=== PATIENT | male | born 1980 | race African-American/Black ===

== ENCOUNTER 2019-02-05 19:51 | Emergency (ER) | payer BC ==
[2019-02-05 20:02] VITALS: BP 124/75
--- NOTE | 2019-02-05 21:55 | ER Document Report ---
HPI - HPI Time Seen by Provider: 02/05/19 21:43 Pain Level: 4 Notes: Patient is a 38-year-old male with no significant past medical history who presents emergency department complaining of increased urinary frequency and suprapubic pressure over the last 2-3 days. Patient states that he noticed some blood in his urine today. Patient states that he does have some back pain on occasion, and back soreness intermittently worse on the Rt > Lt. The pain has not been radiating. Patient states that he does have a decreased appetite when he has the pain, but is not vomiting. He is having normal soft bowel movements. Patient states that he has not been sexually active in 2 years. He has not noticed any rash, swelling, or discharge. Denies drug allergies. Denies any headache, fever, URI, sore throat, chest pain, palpitations, syncope, cough, shortness of breath, wheeze, dyspnea, abdominal pain, nausea/vomiting/diarrhea, loss of control of bowel or bladder, numbness/tingling, saddle anesthesia, muscle paralysis/weakness, or rash. - ROS Systems Reviewed and Negative: Yes All other systems reviewed and negative - URINARY Urinary: REPORTS: Dysuria, Urgency, Frequency Past Medical History - Social History Smoking Status: Never Smoker Family History: Reviewed & Not Pertinent Patient has suicidal ideation: No Patient has homicidal ideation: No Renal/ Medical History: Denies: Hx Peritoneal Dialysis Vertical Provider Document - CONSTITUTIONAL Agree With Documented VS: Yes Notes: PHYSICAL EXAMINATION: GENERAL: Well-appearing, well-nourished and in no acute distress. LUNGS: Breath sounds clear to auscultation bilaterally and equal. No wheezes rales or rhonchi. HEART: Regular rate and rhythm without murmurs, rubs, gallops. ABDOMEN: Soft, nontender, nondistended abdomen. No guarding, no rebound. No masses appreciated. Normal bowel sounds present. No CVA tenderness bilaterally. Musculoskeletal: FROM to passive/active. Strength 5+/5. Back: FROM. Strength 5+/5. SLR neg. No foot drop. No midline tenderness. Extremities: No cyanosis, clubbing, or edema b/l. Peripheral pulses 2+. Capillary refill less than 3 seconds. NEUROLOGICAL: Normal speech, normal gait. Normal sensory, motor exams PSYCH: Normal mood, normal affect. SKIN: Warm, Dry, normal turgor, no rashes or lesions noted. - INFECTION CONTROL TRAVEL OUTSIDE OF THE [place] IN LAST 30 DAYS: No Course - Re-evaluation Re-evalutation: 02/05/19 22:53 Pt has glucose in his urine, accucheck of 254. Reviewed with Dr. Wall, we will obtain CBC/CMP/A1C and start him on Metformin if allowed by labs. Pt otherwise has evidence for recently passed stone and UTI. First dose of keflex will be given PO today. 02/05/19 23:30 Patient is an afebrile, well-hydrated, 38-year-old male who presents to the emergency department with type 2 diabetes, UTI, recently passed kidney stone. Vitals are acceptable without significant tachycardia, tachypnea, or hypoxia. PE is otherwise unremarkable. Patient is nontoxic-appearing and is tolerating p.o. without difficulty. See lab results with significance in A1c of 9.9 and elevated glucose. See urinalysis. Urine culture is pending. See CT scan result. Patient given first dose of Keflex/metformin today. Stressed the importance of strict glucose control with risk and benefit thoroughly reviewed. No further labs or imaging warranted. Low suspicion for any DKA, HHS, urosepsis, acute abdomen, meningitis, severe dehydration, respiratory compromise, or other systemic emergent condition at this time. Patient is aware that condition can change from initial presentation and he needs to monitor symptoms closely and seek medical attention with any acute changes. He will be sent home with a prescription for Keflex and metformin. Recheck with the PCM in 3-5 days. Return to the ED with any other worsening/concerning symptoms. Patient is in agreement. - Vital Signs Vital signs: Temp Pulse Resp BP Pulse Ox 97.6 F 101 H 19 124/75 97 02/05/19 20:01 02/05/19 20:01 02/05/19 20:01 02/05/19 20:01 02/05/19 20:01 - Laboratory Result Diagrams: 02/05/19 20:59 02/05/19 20:59 Discharge - Discharge Clinical Impression: Acute UTI (urinary tract infection) Diabetes Qualifiers: Diabetes mellitus type: type 2 Diabetes mellitus termite control service representative insulin use: without termite control service representative use Diabetes mellitus complication status: without complication Qualified Code(s): E11.9 - Type 2 diabetes mellitus without complications Hematuria Qualifiers: Hematuria type: unspecified type Qualified Code(s): R31.9 - Hematuria, unspecif ied Condition: Stable Disposition: HOME, SELF-CARE Instructions: Cephalexin ([facility]), Urinary Tract Infection ([facility]), Diabetes ([facility]), Family Physicians / Practices Additional Instructions: As reviewed, it is very important that you have strict blood sugar control and monitoring by a family doctor. You are at higher risk for organ damage, delayed healing, stroke, and heart attack. Maintain adequate fluid and food intake Take home medications as directed Low-carb/sugar diet Exercise regularly Monitor blood glucose daily and keep a log Monitor symptoms for any acute changes Recheck with your PCM in 3-5 days Consider a follow-up with endocrinology Return to the ED with any worsening symptoms and/or development of fever, headache, chest pain, palpitations, syncope, shortness of breath, trouble breathing, abdominal pain, n/v/d, blood in stool/urine, loss of control of bowel/bladder, urinary retention, muscle weakness/paralysis, numbness/tingling, or other worsening symptoms that are concerning to you. Prescriptions: Cephalexin Monohydrate [Keflex 500 mg Capsule] 500 mg PO TID #21 capsule Metformin HCl [Glucophage 500 mg Tablet] 500 mg PO BID #60 tablet Referrals: [facility] [Provider Group] - Follow up as needed [facility] [Provider Group] - Follow up as needed
[2019-02-05 22:26] LABS: APPEARANCE,URINE SLIGHTLY-CLOUDY; BILIRUBIN,URINE NEGATIVE (NEGATIVE); COLOR,URINE YELLOW; GLUCOSE, URINE >=500 mg/dL (NEGATIVE); KETONES,URINE TRACE mg/dL (NEGATIVE); LEUKOCYTE ESTERASE,URINE LARGE (NEGATIVE); NITRITE,URINE NEGATIVE (NEGATIVE); PROTEIN,URINE 100 mg/dL (NEGATIVE); URINE SPECIFIC GRAVITY 1.018; UROBILINOGEN,URINE NEGATIVE mg/dL (<2.0)
--- NOTE | 2019-02-05 22:31 | RADIOLOGY REPORT (SQ) ---
CT ABDOMEN PELVIS WITHOUT IV CONTRAST HISTORY: Back pain. Hematuria. Dysuria. COMPARISON: None. TECHNIQUE: CT scan of the abdomen and pelvis was performed without IV contrast. This exam was performed according to our departmental dose-optimization program, which includes automated exposure control, adjustment of the mA and/or kV according to patient size and/or use of iterative reconstruction technique. FINDINGS: The lung bases are clear. No pleural or pericardial effusions. There is no hiatal hernia. The liver, spleen, pancreas, gallbladder, adrenal glands, and kidneys are unremarkable. There is mild inflammatory stranding surrounding the right ureter without a definite stone visualized. The pelvic organs are unremarkable. No small bowel obstruction. The appendix is normal. There is no evidence of diverticulitis. No intraperitoneal free fluid or free air is identified. There is a well-corticated ossific fragment arising off the anterior superior L3 vertebral body likely representing a limbus vertebra. Aorta is normal caliber. No body wall hernia is appreciated. IMPRESSION: Mild inflammatory changes of the right ureter without definite stone identified. Findings may represent either presence of a radiolucent stone, or sequela of recently passed urinary stone.
[2019-02-05] MEDS ORDERED: CEPHALEXIN 500 MG CAPSULE PO ONE (22:52)
[2019-02-05 23:07] LABS: ABSOLUTE BASOPHILS # (AUTO) 0.1 10^3/uL (0.0-0.2); ABSOLUTE LYMPHOCYTES (AUTO) 1.8 10^3/uL (0.5-4.7); ABSOLUTE MONOCYTES (AUTO) 0.9 10^3/uL (0.1-1.4); ABSOLUTE NEUT (AUTO) 7.8 10^3/uL (1.7-8.2); BASOPHILS % (AUTO) 0.7 % (0-2); EOSINOPHILS % (AUTO) 0.3 % (0-6); MEAN CORPUSCULAR HEMOGLOBIN 26.8 pg (27.0-33.4); MEAN CORPUSCULAR HGB CONC 33.4 g/dL (32.0-36.0); MEAN CORPUSCULAR VOLUME 81 fl (80-97); MONOCYTES % (AUTO) 8.7 % (3-13); PLATELET COUNT 222 10^3/uL (150-450); RED BLOOD COUNT 5.22 10^6/uL (4.35-5.55); SEGMENTED NEUTROPHILS % (AUTO) 73.3 % (42-78); TOTAL CELLS COUNTED % (AUTO) 100 %; WHITE BLOOD COUNT 10.7 10^3/uL (4.0-10.5)
[2019-02-05 23:19] LABS: ALANINE AMINOTRANSFERASE 40 U/L (21-72); ALBUMIN 4.1 g/dL (3.5-5.0); ALKALINE PHOSPHATASE 101 U/L (38-126); ANION GAP 11 (5-19); ASPARTATE AMINO TRANSFERASE 43 U/L (17-59); BILIRUBIN,DIRECT 0.3 mg/dL (0.0-0.4); BILIRUBIN,TOTAL 2.1 mg/dL (0.2-1.3); BLOOD UREA NITROGEN 14 mg/dL (7-20); CALCIUM 9.9 mg/dL (8.4-10.2); CARBON DIOXIDE 29 mmol/L (22-30); CHLORIDE 96 mmol/L (98-107); GLUCOSE 266 mg/dL (75-110); POTASSIUM 4.2 mmol/L (3.6-5.0); SODIUM 136.3 mmol/L (137-145); TOTAL PROTEIN 7.9 g/dL (6.3-8.2)
[2019-02-05] MEDS ORDERED: METFORMIN HCL 500 MG TABLET PO ONE (23:36)
[2019-02-05 23:52] LABS: CHLAM PCR NOT DETECTED (NOT DETECT); GON PCR NOT DETECTED (NOT DETECT)
== END 2019-02-05 23:57 | disposition home or self-care (01) ==
LOC: ER 19:51
DX: N39.0 Urinary tract infection, site not specified (principal); R31.0 Gross hematuria; E11.9 Type 2 diabetes mellitus without complications; R35.0 Frequency of micturition; M54.9 Dorsalgia, unspecified; R63.0 Anorexia; R39.15 Urgency of urination; R30.0 Dysuria
CPT/HCPCS: 36415; 74176; 80053; 81001; 82962; 83036; 85025; 87086; 87088; 87186; 87491; 87591; 99284